=== PATIENT | female | born 1965 | race Caucasian/White ===

== ENCOUNTER 2017-08-27 11:04 | Emergency (ER) | payer MEDICAID ==
[~2017-08-27] VITALS: Ht 167.6 cm; Wt 82.6 kg
[2017-08-27] MEDS ORDERED: ONDANSETRON 4 MG/2 ML VIAL IV ONE (11:30)
[2017-08-27] MEDS ORDERED: IV NORMAL SALINE 1000 ML BAG IV ONE (11:30)
[2017-08-27] MEDS ORDERED: ONDANSETRON 4 MG/2 ML VIAL ONE (11:37)
[2017-08-27 11:39] LABS: BASOPHILS % (AUTO) 0.6 % (0.0-2.0); EOSINOPHILS % (AUTO) 0.7 % (0.0-7.0); HEMATOCRIT 42.5 % (31.2-41.9); HEMOGLOBIN 14.4 g/dL (10.9-14.3); LYMPHOCYTES # (AUTO) 1.4 K/uL (20.0-40.0); LYMPHOCYTES % (AUTO) 21.1 % (20.5-51.5); MEAN CORPUSCULAR HEMOGLOBIN 30.6 uug (24.7-32.8); MEAN CORPUSCULAR HGB CONC 34 g/dL (32.3-35.6); MEAN CORPUSCULAR VOLUME 90.2 fL (75.5-95.3); MONOCYTES # (AUTO) 0.5 K/uL (2.0-10.0); NEUTROPHILS # (AUTO) 4.8 K/uL (1.8-8.9); NEUTROPHILS % (AUTO) 69.6 % (38.5-71.5); PLATELET COUNT (AUTO) 220 K/uL (179-408); RED BLOOD CELL COUNT(AUTO) 4.71 MIL/uL (3.63-4.92); WHITE BLOOD COUNT (AUTO) 6.8 K/uL (3.8-11.8)
--- NOTE | 2017-08-27 11:42 | NUR ---
PT IS IN ROOM #2A. DR GOEL EVALUATED THE PT.
[2017-08-27 11:50] LABS: CREATININE 0.9 mg/dL (0.6-1.3); POTASSIUM 4.4 mmol/L (3.5-5.1)
[2017-08-27 11:57] LABS: BILIRUBIN,DIRECT 0.1 mg/dL (0.0-0.2); BILIRUBIN,TOTAL 0.4 mg/dL (0.2-1.0); TOTAL PROTEIN, SERUM 7.1 g/dL (6.4-8.2)
--- NOTE | 2017-08-27 12:37 | NUR ---
PT WAS D/C TO HOME AFTER DR GOEL RE-EVALUATION. D/C INSTRUCTIONS GIVEN TO THE PT.
[2017-08-27 12:38] VITALS: BP 128/68
== END 2017-08-27 12:41 | disposition home or self-care (01) ==
LOC: ER 11:04
DX: K52.9 Noninfective gastroenteritis and colitis, unspecified (principal); Z91.040 Latex allergy status
CPT/HCPCS: 36415; 83690; 84703; 85025; A4663; J2405; J7030

== ENCOUNTER 2017-08-29 08:53 | Emergency (ER) | payer MEDICAID ==
[~2017-08-29] VITALS: Ht 167.6 cm; Wt 81.6 kg
--- NOTE | 2017-08-29 09:06 | NUR ---
DR FARFAN AT THE BEDSIDE FOR EVAL AND EXAM.
[2017-08-29] MEDS ORDERED: ONDANSETRON 4 MG/2 ML VIAL IV ONE (09:15)
[2017-08-29] MEDS ORDERED: IV NORMAL SALINE 1000 ML BAG IV ONE (09:15)
[2017-08-29 09:25] LABS: *BILIRUBIN,URIN NEGATIVE (NEGATIVE); *BLOOD, URINE 2+ (NEGATIVE); *COLOR,URINE YELLOW (YELLOW); *KETONES,URINE NEGATIVE (NEGATIVE); *PROTEIN,URINE NEGATIVE (NEGATIVE); *UROBILINOGEN,URINE 0.2 E.U./dl (NORMAL); LEUKOCYTE ESTERASE ,URINE 1+ (NEGATIVE); NITRITE, URINE POSITIVE (NEGATIVE); UGLUCOSE NEGATIVE (NEGATIVE)
[2017-08-29 09:26] LABS: *CLARITY,URINE SLIGHTLY CLOUDY (CLEAR)
[2017-08-29 09:27] LABS: BASOPHILS % (AUTO) 0.9 % (0.0-2.0); EOSINOPHILS # (AUTO) 0.1 K/uL (0.0-0.7); EOSINOPHILS % (AUTO) 1.6 % (0.0-7.0); HEMATOCRIT 40.8 % (31.2-41.9); HEMOGLOBIN 13.9 g/dL (10.9-14.3); LYMPHOCYTES # (AUTO) 1.8 K/uL (20.0-40.0); LYMPHOCYTES % (AUTO) 33.8 % (20.5-51.5); MEAN CORPUSCULAR HEMOGLOBIN 30.7 uug (24.7-32.8); MEAN CORPUSCULAR HGB CONC 34 g/dL (32.3-35.6); MEAN CORPUSCULAR VOLUME 90.3 fL (75.5-95.3); MONOCYTES # (AUTO) 0.5 K/uL (2.0-10.0); NEUTROPHILS # (AUTO) 2.9 K/uL (1.8-8.9); NEUTROPHILS % (AUTO) 53.7 % (38.5-71.5); PLATELET COUNT (AUTO) 206 K/uL (179-408); RED BLOOD CELL COUNT(AUTO) 4.52 MIL/uL (3.63-4.92); WHITE BLOOD COUNT (AUTO) 5.4 K/uL (3.8-11.8)
[2017-08-29 09:30] LABS: BACTERIA,URINE MANY /HPF (NONE SEEN); SQUAMOUS EPITHELIAL CELL,UR MANY /HPF (NONE SEEN)
[2017-08-29] MEDS ORDERED: ONDANSETRON 4 MG/2 ML VIAL ONE (09:32)
[2017-08-29 09:34] LABS: CREATININE 0.9 mg/dL (0.6-1.3); POTASSIUM 3.9 mmol/L (3.5-5.1)
[2017-08-29 09:45] LABS: BILIRUBIN,DIRECT 0.1 mg/dL (0.0-0.2); BILIRUBIN,TOTAL 0.4 mg/dL (0.2-1.0); TOTAL PROTEIN, SERUM 6.8 g/dL (6.4-8.2)
--- NOTE | 2017-08-29 09:54 | NUR ---
PT OUT OF ER FOR CT.
[2017-08-29] MEDS ORDERED: CEFTRIAXONE 1 G in IV DEXTROSE 5% 50 ML IV ONE (10:00)
[2017-08-29] MEDS ORDERED: CEFTRIAXONE 1 G VIAL ONE (10:09)
--- NOTE | 2017-08-29 11:01 | NUR ---
IV removed. Catheter intact and site benign. Pressure and 4x4 gauze applied to site. No bleeding noted.
[2017-08-29 11:02] VITALS: BP 117/74
--- NOTE | 2017-08-29 11:02 | NUR ---
Patient discharged to home in stable conditon. Written and verbal after care instructions given. Patient verbalizes understanding of instructions.PT LEFT ER W/ STEADY GAIT ACCOMAPINED BY FAMILY.
== END 2017-08-29 11:03 | disposition home or self-care (01) ==
LOC: ER 08:53
DX: R42 Dizziness and giddiness (principal); N39.0 Urinary tract infection, site not specified; K80.20 Calculus of gallbladder without cholecystitis without obstruction; Z91.041 Radiographic dye allergy status
CPT/HCPCS: 36415; 70030-TC; 83690; 85025; 87077; 87086; 93005; A4663; J0696; J2405; J7030

== ENCOUNTER 2018-01-22 10:44 | Emergency (ER) | payer MEDICAID ==
[~2018-01-22] VITALS: Ht 167.6 cm; Wt 81.6 kg
[2018-01-22] MEDS ORDERED: ACETAMINOPHEN 325 MG TABLET PO ONE (11:15)
[2018-01-22] MEDS ORDERED: IBUPROFEN 600 MG TABLET PO ONE (11:15)
--- NOTE | 2018-01-22 11:23 | NUR ---
Patient discharged to home in stable conditon. Written and verbal after care instructions given. Patient verbalizes understanding of instructions.
[2018-01-22] MEDS ORDERED: ACETAMINOPHEN 325 MG TABLET ONE (11:25)
[2018-01-22] MEDS ORDERED: IBUPROFEN 600 MG TABLET ONE (11:25)
== END 2018-01-22 11:24 | disposition home or self-care (01) ==
LOC: ER 10:44
DX: H60.91 Unspecified otitis externa, right ear (principal); Z91.040 Latex allergy status
CPT/HCPCS: 99283; A4663

== ENCOUNTER 2019-02-25 10:18 | Emergency (ER) | payer MEDICAID, OTHER ==
[~2019-02-25] VITALS: Ht 167.6 cm; Wt 81.6 kg
--- NOTE | 2019-02-25 11:11 | NUR ---
Patient discharged to home in stable conditon. Written and verbal after care instructions given. Patient verbalizes understanding of instructions.
== END 2019-02-25 11:13 | disposition home or self-care (01) ==
LOC: ER 10:31
DX: D17.24 Benign lipomatous neoplasm of skin and subcutaneous tissue of left leg (principal); Z91.040 Latex allergy status
CPT/HCPCS: 73590; A4663

== ENCOUNTER 2021-06-20 09:50 | Emergency (ER) | payer OTHER ==
[~2021-06-20] VITALS: Ht 167.6 cm; Wt 81.6 kg
--- NOTE | 2021-06-20 10:08 | NUR ---
DR MOTTA AT BEDSIDE FOR MSE.
--- NOTE | 2021-06-20 10:20 | NUR ---
RIGGING WORKER AT BEDSIDE.
--- NOTE | 2021-06-20 10:35 | NUR ---
PT RESTING IN BED, NO SIGNS OF DISTRESS. XRAY RESULTS PENDING. PT AWARE.
--- NOTE | 2021-06-20 10:48 | NUR ---
XRAY RESULTS BACK. AWARE.
--- NOTE | 2021-06-20 10:52 | NUR ---
CURRICULUM AND ASSESSMENT COORDINATOR MADE AWARE THAT PATIENT'S PHARMACY IS [place], [place]
[2021-06-20] MEDS ORDERED: ALBU6.7H9 INH (11:00)
--- NOTE | 2021-06-20 11:11 | NUR ---
Cleared for DC by ERMD. Patient discharged to home in stable condition. Written and verbal after care instructions given, including prescription information. Patient verbalizes understanding of instructions. Stressed follow up with PCP or return to ER for worsening s/s. Ambulated out of ED in steady gait.
[2021-06-20 11:13] VITALS: BP 120/70
== END 2021-06-20 11:05 | disposition home or self-care (01) ==
LOC: ER 09:51
DX: B34.9 Viral infection, unspecified (principal); R05.9 Cough, unspecified
CPT/HCPCS: 71045; 87400; A4663